=== PATIENT | female | born 1985 | race Hispanic/Latino ===

== ENCOUNTER 2021-12-12 09:29 | Emergency (ER) | payer SELFPAY ==
[~2021-12-12] VITALS: Ht 162.6 cm; Wt 74.8 kg
--- NOTE | 2021-12-12 10:01 | ER.PDOC ---
General Chief Complaint: Requesting Medical Care Stated Complaint: RIGHT HAND MIDDLE FINGER SWELLING Time seen by MD: 09:55 Source: patient Exam Limitations: no limitations History of Present Illness Initial Comments This 36-year-old female comes in complaining of a ring that is too tight and cannot get off of her right middle finger. She put it on to go to the dentist last night. This is just cosmetic jewelry. She wanted to cut off. Nurses cut it off actually prior to me seeing the patient. Patient is now just wanted to go home denies any other injuries no other no other complaints Where: other (no injury just too tight of a ring) Severity: moderate Location of Injury: (R) fingers (ring right middle finger) Past Medical History Medical History: no pertinent history Surgical History: no surgical history Social History Smoking: non-smoker Alcohol Use: occassionally Drug Use: none Review of Systems Constitutional: denies no symptoms reported, denies see HPI, denies chills, denies diaphoresis, denies fever, denies malaise, denies weakness, denies other EENTM: denies no symptoms reported, denies see HPI, denies eye pain, denies blurred vision, denies tearing, denies double vision, denies ear pain, denies ear discharge, denies nose pain, denies nose congestion, denies throat pain, denies throat swelling, denies mouth pain, denies mouth swelling, denies other Respiratory: denies no symptoms reported, denies see HPI, denies cough, denies orthopnea, denies shortness of breath, denies stridor, denies wheezing, denies other Cardiovascular: denies no symptoms reported, denies see HPI, denies chest pain, denies edema, denies palpitations, denies syncope, denies other Gastrointestinal: denies no symptoms reported, denies see HPI, denies abdominal pain, denies constipation, denies diarrhea, denies nausea, denies vomiting, denies other Genitourinary: denies no symptoms reported, denies see HPI, denies discharge, denies dysuria, denies frequency, denies hematuria, denies pain, denies other Musculoskeletal: denies back pain, denies gout, denies joint pain, denies joint swelling, denies muscle pain, denies muscle stiffness, denies neck pain; other (Tight ring right middle finger) Skin: denies no symptoms reported, denies see HPI, denies change in color, denies change in hair/nails, denies dryness, denies lesions, denies lumps, denies rash, denies other Psychiatric/Neurological: denies no symptoms reported, denies see HPI, denies anxiety, denies depressed, denies emotional problems, denies headache, denies numbness, denies paresthesia, denies pre-existing deficit, denies seizure, de nies tingling, denies tremors, denies weakness, denies other Physical Exam General Appearance: Alert, No Apparent Distress Hand: tenderness Wrist: nml inspection, non-tender, nml ROM Neuro: sensation nml, motor nml Vascular: no vascular compromise Tendons: tendon function nml Forearm/Elbow/Arm: uninjured above wrist Skin: warm/dry Head/ENT: nml inspection, pharynx nml Neck/Back: nml inspection, non-tender Resp/CVS: no resp distress, lungs clear, heart sounds nml, reg. rate & rhythm Abdomen: non-tender, no organomegaly ER DEPART Departure Time of Disposition: 10:02 Disposition: 01 HOME / SELF CARE / HOMELESS Impression: Primary Impression: Foreign body Condition: Improved Referrals: PCP,UNKNOWN (PCP) PRIMARY CARE PROVIDER Duration or Time Spent with Pa: STANTON Kelley MD Dec 12, 2021 10:01
--- NOTE | 2021-12-12 10:11 | NUR ---
[facility]IV[facility] PT ARRIVED AMBULATORY TO ED 5 WITH C/O A SWOLLEN RIGH TMIDLE FINGER AND CAN NOT GET THE RING OFF. FINGER IS PURPLE AND HURTING. CUT THE RING OFF WITH A RING CUTTER. VITALS TAKEN AND DR NOTIFIED.
[2021-12-12 10:13] VITALS: BP 158/89
[2021-12-12 10:17] VITALS: BP 158/89
== END 2021-12-12 10:05 | disposition home or self-care (01) ==
LOC: ER 09:29
DX: S60.454A Superficial foreign body of right ring finger, initial encounter (principal); F10.20 Alcohol dependence, uncomplicated; X58.XXXA Exposure to other specified factors, initial encounter; Y93.89 Activity, other specified; Y92.89 Other specified places as the place of occurrence of the external cause; Y99.8 Other external cause status
CPT/HCPCS: 99281; 99284